=== PATIENT | female | born 1960 | race Caucasian/White ===

== ENCOUNTER 2018-07-27 16:41 | Emergency (ER) | payer OTHER ==
[~2018-07-27] VITALS: Ht 154.9 cm; Wt 61.2 kg
[2018-07-27 16:50] VITALS: BP 237/91
--- NOTE | 2018-07-27 16:57 | NUR ---
PT TRIAGED AND AMBULATED TO BED 6 Addendum: 07/27/18 at 1700 by [facility] BED 8
--- NOTE | 2018-07-27 17:05 | NUR ---
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 CLONIDINE 0.1MG PO GIVEN AT URGENT CARE. BP 237 AT TRIAGE. DIALYSIS SCHEDULE MWF, LAST DIALYSIZED YESTERDAY. PT MISSED BP MEDICATION TODAY. PT DENIES ANY CANAS OR DIZZYNESS. RR EVEN AND UNLABORED. PT. C/O N/V ONCE X TODAY NO BLOOD NOTED IN VOMIT. PT ABLE TO SPEAK IN FULL AND COMPLETE SENTENCES. 4/10 L LOWER BACK THAT RADIATES TO LLQ WILL CONTINUE TO MONITOR. DAUGHTER AT BEDSIDE. SAFETY PRECAUTIONS IN PLACE. HX---DM (SHUNT TO L ARM), HTN MEDS---GABAPENTIN, SENSIPAR, NIFEDIPINE
[2018-07-27] MEDS ORDERED: METOPROLOL 5 MG/5 ML VIAL IVP ONE (17:20)
--- NOTE | 2018-07-27 17:26 | NUR ---
[facility] NERI NOTIFIED OF B/P 183/76. PER MD MAURER " DO NOT GIVE LOPRESSOR AT THIS TIME , WE WILL OBSERVE AND MONITOR BLOOD PRESSURE, NO IV EITHER". WILL CONTINUE TO MONITOR.
--- NOTE | 2018-07-27 17:28 | NUR ---
LAB AT BEDSIDE AT THIS TIME.
--- NOTE | 2018-07-27 17:30 | NUR ---
Paz acosta in [facility] - 07/27/18 at 1736 by [facility] AT BEDSIDE AT THIS TIME
--- NOTE | 2018-07-27 17:38 | NUR ---
RADIOLOGY AT BEDSIDE .
[2018-07-27 17:39] LABS: BASOPHILS # (AUTO) 0.1 K/uL (0.00-0.22); BASOPHILS % (AUTO) 0.9 % (0.0-2.0); EOSINOPHILS # (AUTO) 0.2 K/uL (0-0.4); EOSINOPHILS % (AUTO) 2.8 % (0.0-4.0); HEMATOCRIT 38.5 % (36-48); HEMOGLOBIN 12.3 g/dL (12.0-16.0); LYMPHOCYTES # (AUTO) 3.6 K/uL (2.5-16.5); MEAN CORPUSCULAR HEMOGLOBIN 30 pg (27-31); MEAN CORPUSCULAR HGB CONC 32 g/dL (33-37); MEAN CORPUSCULAR VOLUME 93.8 fL (80-94); MONOCYTES # (AUTO) 0.8 K/uL (0.8-1.0); MONOCYTES % (AUTO) 10.8 % (1.7-9.3); NEUTROPHILS # (AUTO) 2.7 K/uL (1.8-7.7); NEUTROPHILS % (AUTO) 36.5 % (42.2-75.2); PLATELET COUNT (AUTO) 143 K/uL (140-450); WHITE BLOOD COUNT (AUTO) 7.4 K/uL (4.8-10.8)
[2018-07-27 18:00] LABS: ALBUMIN 3.6 g/dL (3.4-5.0); ANION GAP 11.7 (8-16); CARBON DIOXIDE 31.2 mmol/L (21-32); POTASSIUM 5.9 mmol/L (3.5-5.1); TOTAL BILIRUBIN 0.5 mg/dL (0.0-1.0)
[2018-07-27 18:07] LABS: CREATININE 9.1 mg/dL (0.6-1.3)
--- NOTE | 2018-07-27 18:25 | NUR ---
PT. RESTING COMFORTABLY IN BED, VSS. HOB ELEVATED. DAUGHTER AT BEDSIDE. WILL CONTINUE TO MONTIOR.
--- NOTE | 2018-07-27 19:17 | NUR ---
Pt report given to carole jha . Transfer of care at this time.
--- NOTE | 2018-07-27 19:35 | NUR ---
Dr. Klein evaluating patient at bedside.
[2018-07-27] MEDS ORDERED: SODIUM POLYSTYRENE 15 GM/60 ML UDBTL PO ONE (20:20)
--- NOTE | 2018-07-27 20:30 | NUR ---
DR LONDONO @ BEDSIDE
[2018-07-27] MEDS ORDERED: KETOROLAC 30 MG/ML VIAL IM ONE (20:40)
--- NOTE | 2018-07-27 20:45 | NUR ---
PT MEDICATED WITH TORADOL IM FOR C/O ABD PAIN.
[2018-07-27 20:53] VITALS: BP 165/80
--- NOTE | 2018-07-27 20:55 | NUR ---
PT REEVALUTATED PT NOW 0/10 PAIN. VSS. UPDATED ER .
--- NOTE | 2018-07-27 20:56 | NUR ---
Patient discharged with v/s stable. Written and verbal after care instructions given and explained. Patient verbalized understanding. Ambulatory with steady gait. All questions addressed prior to discharge. Advised to follow up with PMD.
== END 2018-07-27 20:56 | disposition home or self-care (01) ==
LOC: MED 16:41
DX: R10.12 Left upper quadrant pain (principal); I10 Essential (primary) hypertension; E87.5 Hyperkalemia; R11.10 Vomiting, unspecified; E11.9 Type 2 diabetes mellitus without complications
CPT/HCPCS: 36415; 71045; 80053; 83880; 84484; 85025; 93005; 96372; 99284; J1885; Q0092; J3490